=== PATIENT | male | born 1970 | race African-American/Black ===

== ENCOUNTER 2017-04-01 13:15 | Emergency (ER) | payer SELFPAY ==
[~2017-04-01] VITALS: Ht 167.6 cm; Wt 73.0 kg
[2017-04-01] MEDS ORDERED: KETOROLAC 60MG/2ML VIAL IM ONE (16:15)
[2017-04-01 17:00] VITALS: BP 137/85
== END 2017-04-01 17:42 | disposition home or self-care (01) ==
LOC: ER 15:55
DX: S86.911A Strain of unspecified muscle(s) and tendon(s) at lower leg level, right leg, initial encounter (principal); F17.200 Nicotine dependence, unspecified, uncomplicated; X58.XXXA Exposure to other specified factors, initial encounter; Y93.89 Activity, other specified; Y92.89 Other specified places as the place of occurrence of the external cause; Y99.8 Other external cause status
CPT/HCPCS: 96372; 99283; J1885